=== PATIENT | female | born 1995 | race American Indian/Alaskan Native ===

== ENCOUNTER 2017-08-28 07:16 | Emergency (ER) | payer SELFPAY ==
[2017-08-28 07:36] VITALS: BP 114/61
--- NOTE | 2017-08-28 08:53 | Emergency Department Report ---
Minor Respiratory (Peds) - HPI Chief Complaint: Sore Throat Stated Complaint: 5 d hx sore throat w known exposure. no fever per child. Time Seen by Provider: 08/28/17 08:12 Duration: 3 Days Pain Location: Throat Pain Severity: Mild Symptoms: Yes Sore Throat, Yes Sick Contacts, Yes Able to Tolerate Fluids, Yes Good Urine Output, Yes Active and Alert, No Fever, No Rhinorrhea, No Ear Pain, No Cough, No Shortness of Breath ED Review of Systems ROS: Stated complaint: COLD Other details as noted in HPI Comment: All other systems reviewed and negative ENT: throat pain Pediatric Past Medical History - Chronic Health Problems Hx Asthma: No Hx Diabetes: No Hx HIV: No Hx Sickle Cell Disease: No Hx Seizures: No - Immunizations Immunizations Up to Date: Yes - Family History Hx Family Asthma: No Hx Family Sickle Cell Disease: No Other Family History: No - School Status Pediatric School Status: School - Guardian Patient lives with:: mother Peds Minor Resp. exam - Exam General: Vital signs noted. No distress. Alert and acting appropriately. Peds HEENT: Pharyngeal Erythema: Yes (red, shiny, no exudate, malodorous, taking po, phonation suggestive of strep), Pharyngeal Exudates: No, Moist Mucous Membranes: Yes, Rhinorrhea: No, Conjuctival Injection: No Ear: Neither TM Bulge, Neither TM Erythema, Neither EAC Discharge Peds neck exam: Adenopathy: No, Supple: Yes Peds Lung exam: Good Air Exchange: Yes, Wheezes: No, Stridor: No, Cough: No, Nasal Flaring: No, Retractions: No, Use of Accessory Muscles: No Heart: Yes Regular, No Murmur Peds abdomen: Abdominal Tenderness: No, Peritoneal Signs: No, Normal Bowel Sounds: Yes, Distention: No Peds Skin Exam: Rash: No, Eczema: No Neurologic: Alert and oriented, no deficits. Musculoskeletal: Unremarkable. ED Course Vital Signs 08/28/17 07:32 Temperature 98.2 F Pulse Rate 56 L Respiratory 18 Rate Blood Pressure 114/61 O2 Sat by Pulse 100 Oximetry ED Medical Decision Making - Differential Diagnosis pharyngitis Critical care attestation.: If time is entered above; I have spent that time in minutes in the direct care of this critically ill patient, excluding procedure time. ED Disposition Clinical Impression: Pharyngitis Disposition: DC-01 TO HOME OR SELFCARE Is pt being admited?: No Does the pt Need Aspirin: No Condition: Stable Instructions: Pharyngitis (ED) Additional Instructions: hydrate well motrin or tylenol for pain or fever med as ordered until gone good handwashing Referrals: PRIMARY CARE, [Primary Care Provider] - 3-5 Days NAVID HOLDER MD [Staff Physician] - 3-5 Days Time of Disposition: 08:49
== END 2017-08-28 09:06 | disposition home or self-care (01) ==
LOC: ED 07:16
DX: J02.9 Acute pharyngitis, unspecified (principal)
CPT/HCPCS: 99282

== ENCOUNTER 2018-01-07 13:56 | Emergency (ER) | payer SELFPAY ==
[2018-01-07 15:21] VITALS: BP 100/64
[2018-01-07 15:48] LABS: Basophils # (Auto) 0.1 K/mm3 (0.0-0.1); Basophils % (Auto) 0.9 % (0.0-1.8); Eosinophils # (Auto) 0.1 K/mm3 (0.0-0.4); Eosinophils % (Auto) 1.1 % (0.0-4.3); Hematocrit 35.6 % (30.3-42.9); Hemoglobin 11.8 gm/dl (10.1-14.3); Lymphocytes # (Auto) 2.1 K/mm3 (1.2-5.4); Lymphocytes % (Auto) 23.8 % (13.4-35.0); Mean Corpuscular HGB Conc 33 % (30-34); Mean Corpuscular Hemoglobin 28 pg (28-32); Mean Corpuscular Volume 85 fl (79-97); Monocytes # (Auto) 0.6 K/mm3 (0.0-0.8); Monocytes % (Auto) 6.5 % (0.0-7.3); Platelet Count 212 K/mm3 (140-440); Red Blood Count 4.17 M/mm3 (3.65-5.03); Red Cell Distribution Width 16.2 % (13.2-15.2)
[2018-01-07 16:01] LABS: Alanine Aminotransferase 8 units/L (7-56); Albumin 4.5 g/dL (3.9-5); BUN/Creatinine Ratio 15; Blood Urea Nitrogen 9 mg/dL (7-17); Calcium 9.1 mg/dL (8.4-10.2); Hemolysis Index 5; Lipase 32 units/L (13-60)
== END 2018-01-07 18:00 | disposition left against medical advice (07) ==
LOC: ED 13:56
DX: R10.9 Unspecified abdominal pain (principal); Z53.21 Procedure and treatment not carried out due to patient leaving prior to being seen by health care provider
CPT/HCPCS: 36415; 80053; 83690; 85025